=== PATIENT | female | born 1965 | race Caucasian/White ===

== ENCOUNTER 2017-06-17 12:55 | Emergency (ER) | payer BC ==
[~2017-06-17] VITALS: Ht 170.2 cm; Wt 83.0 kg
[~2017-06-17 12:55] MED LIST: ASPIR 8181 MG PO; CLONAZEPAM 0.50.5 M1 PO; FISH OIL 1,001000 M2 PO; HYDROCODON-ACE1 EAC7 PO; LEVOTHYROXIN0.112 M1 PO; LOVASTATIN 20 M20 MG PO; MULTIVITAMINS1 EAC7 PO; NEURONTIN 300300 M1 PO; TOPAMAX50 MG PO; TRINTELLIX PO; VISTARIL 25 MG25 M1 PO; VITAMIN D1000 UNI1 PO
[2017-06-17] MEDS ORDERED: ENDOCET 5-3251 EACH PO (14:47)
[2017-06-17 14:48] VITALS: BP 119/91
[2017-08-24] MEDS ORDERED: HYDROCODONE-AP1 EAC6 PO (08:50)
[2017-08-24] MEDS ORDERED: OXYCODONE HCL 55 MG PO (08:51)
[2018-03-12] MEDS ORDERED: NEURONTIN 300300 M1 PO (09:12)
[2018-03-12] MEDS ORDERED: MOBIC15 MG PO (09:12)
[2018-04-09] MEDS ORDERED: NEURONTIN 300300 M1 PO (08:19)
[2018-04-09] MEDS ORDERED: MOBIC15 MG PO (08:19)
== END 2017-06-17 14:53 | disposition home or self-care (01) ==
LOC: M.ERS 12:55
DX: S52.571A Other intraarticular fracture of lower end of right radius, initial encounter for closed fracture (principal); S46.911A Strain of unspecified muscle, fascia and tendon at shoulder and upper arm level, right arm, initial encounter; M25.331 Other instability, right wrist; F41.9 Anxiety disorder, unspecified; E78.00 Pure hypercholesterolemia, unspecified; F32.9 Major depressive disorder, single episode, unspecified; E03.9 Hypothyroidism, unspecified; Z88.8 Allergy status to other drugs, medicaments and biological substances; Z90.710 Acquired absence of both cervix and uterus; Z90.49 Acquired absence of other specified parts of digestive tract; W01.0XXA Fall on same level from slipping, tripping and stumbling without subsequent striking against object, initial encounter; Y93.89 Activity, other specified; Y92.59 Other trade areas as the place of occurrence of the external cause; Y99.8 Other external cause status

== ENCOUNTER → 2017-11-28 | Outpatient (CLI) | payer BC ==
[~2017-11-28] MED LIST changes: +ENDOCET 5-3251 EACH PO; +HYDROCODONE-AP1 EAC6 PO; +MOBIC15 MG PO; +OXYCODONE HCL 55 MG PO
== END ==
LOC: M.MRI 11-22 15:12
DX: I70.8 Atherosclerosis of other arteries (principal); G45.3 Amaurosis fugax; G43.909 Migraine, unspecified, not intractable, without status migrainosus

== ENCOUNTER → 2018-01-04 | Outpatient (CLI) | payer BC | LOC: M.RAD 13:30 | DX: M51.37 Other intervertebral disc degeneration, lumbosacral region (principal); Z95.828 Presence of other vascular implants and grafts ==

== ENCOUNTER → 2018-03-12 | Outpatient (CLI) | payer BC ==
--- NOTE | 2018-04-01 10:00 | PAINCON ---
[address] [address] PAIN MANAGEMENT CONSULTATION Name: WEIKEAGANBERTRANDNINFA [facility]#: [id number] Admission: 03/12/18 Attend Phys: Guillermo Marcum MD Discharge: Date of : 61 Report #: [id number] THIS REPORT FOR: //name// CC: Guillermo Chinchilla DO DATE OF SERVICE: 03/12/2018 PRIMARY CARE PHYSICIAN: Italo Chinchilla DO CHIEF COMPLAINT: Low back and hip pain. HISTORY OF PRESENT ILLNESS: The patient is a 52-year-old female who has been referred to the Pain Clinic for evaluation of back and hip pain. She has been experiencing pain in the low back area. She is not taking any medications at this juncture. Has taken nonsteroidal anti-inflammatory medications. Feels that the pain is exacerbated by standing as well as sitting for a prolonged periods of time. Describes as continuous, steady and rates it as a 4/10 at this juncture. Denies back surgery. The patient states that she was given a Medrol Dosepak about 5 years ago. She had some problems with that medication at that time. States that she had some tightening around her throat as well as some heart palpitations. She has noted some pain in the posterior portion of her upper thighs in the L5-S1 distribution. Overall, she feels that she has had back pain issues over the last 10 years. Pain has been so problematic that she has had a number of family medical leaves in the past. ALLERGIES: PREDNISONE - sounds like PREDNISONE and MEDROL DOSEPAK caused some palpitations in the chest as well as some tightening in the neck area; this was about 5 years ago. WELLBUTRIN. MEDICATIONS: Mevacor 20 mg total of 80 mg at bedtime, levothyroxine 0.112 mg, aspirin 81 mg chewable. DISCONTINUED MEDICATIONS: Topamax 50 mg b.i.d., gabapentin 300 mg t.i.d., Trintellix 20 mg, clonazepam 0.5 mg b.i.d., Vistaril 25 mg p.r.n. anxiety, vitamin D 1000 units, fish oil 1000 mg, multivitamins. PAST MEDICAL HISTORY: Low back pain, left hip pain, obesity, abdominal aortic aneurysm, generalized anxiety disorder, gastroesophageal reflux disease, heart disease, hypothyroidism, major depressive disorder, obstructive sleep apnea, polyosteoarthritis. PAST SURGICAL HISTORY: Hysterectomy, bilateral partial rotator cuff repairs, right carpal tunnel release, D and C miscarriage, laparoscopic cholecystectomy, [place] [address] PAIN MANAGEMENT CONSULTATION Name: NINFA LUNA Room: [facility] JONATHAN Dunn#: [id number] Admission: 03/12/18 Attend Phys: Guillermo Marcum MD Discharge: Date of : 61 Report #: [id number] history of kidney stones, abdominal aortic aneurysm, stent placement in 2017, oral surgery maxillary extractions with upper denture. SOCIAL HISTORY: The patient is not working, has not worked for the last 2 years. REVIEW OF SYSTEMS: Generally good health, fatigue, weakness, headaches, wears glasses, blurred vision, hearing loss, thyroid disease, back pain, frequent recurring headaches, lightheadedness, dizziness, depression. LABORATORY DATA: Again, no new laboratory values are available. MRI dated 09/22/2004 reveals degenerative disk changes at L5-S1. Mild central disk bulge causing no lateralization or spinal stenosis. PAIN CLINIC ASSESSMENT/PQRS 1. Osteoarthritis/rheumatoid arthritis. The patient states she has not been treated for rheumatoid arthritis, does have some arthritic changes in her shoulders bilaterally. Does have pain in her right wrist after a fall. 2. Height 5 feet 7 inches, weight 187 pounds, BMI is 29.3. 3. Vital signs: Blood pressure 145/78, heart 86, respiratory rate 16, room air saturation 94%, temperature 98.7. 4. Pain score 4/10. 5. Fall risk. The patient has not fallen in the last 3 months. 6. Blood thinner. The patient is not on blood thinning medication. 7. Hypertension. The patient is not being treated for hypertension. 8. Opioid therapy. The patient is not receiving opioid medication on a regular basis. 9. Risk assessment low for opioid use. 10. Functional assessment tool 20/70. 11. Recreational drug use. The patient denies use of recreational drugs. 12. Tobacco: The patient does smoke cigarettes. She has a 43-mahi-mkgw history. 13. Alcohol: The patient denies frequent alcohol use. PHYSICAL EXAMINATION: GENERAL: The patient is a well-developed, well-nourished white female. Appears her stated age. She is alert and oriented x 3. Slightly obese. HEENT: Normocephalic, atraumatic. Extraocular eye muscles intact. Sclerae nonicteric. Mucous membranes are moist. The patient has a significant number of lower teeth which have been extracted. NECK: Without JVD or adenopathy, no bruit is heard. HEART: Regular rate. LUNGS: Clear to auscultation. ABDOMEN: Nontender with bowel sounds present. MUSCULOSKELETAL: Without significant scoliosis, kyphosis or lordosis. The patient has pain and discomfort in the low back area with pain radiating down [facility] [address] [place] [address] PAIN MANAGEMENT CONSULTATION Name: NINFA LUNA Room: [facility]#: [id number] Admission: 03/12/18 Attend Phys: Guillermo Marcum MD Discharge: Date of : 61 Report #: [id number] into the low back area and posterior portion of her right thigh. Forward bending is limited to about 45 degrees with note of pain and discomfort in the low back area, left and right lateral rotation cause some increased discomfort in the low back area, particularly with rotation to the right. Lumbar extension causes pain to experience pain, which radiates down the posterior portion of her back down to the level of her knees. This is in the L5-S1 distribution. The right upper extremity muscle strength is judged to be 4+/5 for the upper extremity on the right, left 5/5 upper extremity. The patient has some pain and discomfort in the right wrist area. States that this is where she had fallen and fractured it. Did not have a cast on for the entirety of the healing process. Muscle strength judged to be 5-/5 for the major muscle groups of the lower extremities. IMPRESSION: 1. Low back pain in the lower lumbar area. The patient with pain in the L5-S1 area in the posterior portion of her right leg. 2. Left hip pain. 3. Obesity. 4. Abdominal aortic aneurysm. 5. Generalized anxiety disorder. 6. Gastroesophageal reflux disease. 7. Heart disease. 8. Hypothyroidism. 9. Major depressive disorder. 10. Obstructive sleep apnea. 11. Polyosteoarthritis. RECOMMENDATIONS: We discussed treatment options with the patient. The patient does have complaint of some pain, which radiates in the L5-S1 distribution on the right. We would consider an epidural steroid injection. The patient states that she was given a Medrol Dosepak some years ago. Did note some problems with palpitations and feeling of swelling in the neck area. We explained to the patient that oftentimes treatment of pain in low back area with irritation of the lumbosacral nerves entail from epidural steroid injection. Medications that we use is triamcinolone. Oftentimes, the patients can experience some problems with medications. It can be as a result of the formulation within the pills and variable from one brand to the next. The patient have experienced some problems with palpitations with steroids in the past. I would recommend the patient be evaluated/worked up to see whether or not she would have an allergy to use of dexamethasone or triamcinolone. These were the agents that we often use in the Pain Clinic. If the patient was found to be able to tolerate their use, she could return to the Pain Clinic at which time she can undergo an epidural steroid injection. We discussed use of Neurontin. The patient states that she had used it in the past. She has not used that at this juncture. Also, would recommend that the patient consider physical therapy. The patient may finds use of tramadol some benefit. Discussed with the patient the [place] [address] PAIN MANAGEMENT CONSULTATION Name: NINFA LUNA Room: [facility]#: [id number] Admission: 03/12/18 Attend Phys: Guillermo Marcum MD Discharge: Date of : 61 Report #: [id number] medications. We have explained that opioid medications can be helpful, but can be problematic and cause some dependency. Oftentimes chronic use of these medications can become less effective secondary to tolerance. The patient can return to the Pain Clinic after she has been tested for the use of triamcinolone and dexamethasone. We would like to thank you for letting us participate in her care. We hope she continues to improve. <ELECTRONICALLY SIGNED> By: Guillermo Marcum MD 04/01/18 [id number]. Alejandro Marcum MD /PMT
== END ==
LOC: M.PC 01-29 04:51
DX: M54.5 Low back pain (principal); M25.552 Pain in left hip; E66.9 Obesity, unspecified; I71.4 Abdominal aortic aneurysm, without rupture; F41.9 Anxiety disorder, unspecified; K21.9 Gastro-esophageal reflux disease without esophagitis; E03.9 Hypothyroidism, unspecified; I51.9 Heart disease, unspecified; F32.9 Major depressive disorder, single episode, unspecified; G47.33 Obstructive sleep apnea (adult) (pediatric); M15.9 Polyosteoarthritis, unspecified

== ENCOUNTER → 2018-11-06 | Outpatient (CLI) | payer BC ==
--- NOTE | 2018-11-08 17:08 | CARDNUC ---
[place] [address] CARDIAC NUCLEAR IMAGING REPORT Name: WEININFA HOANG Room: [facility]#: [id number] Admission: 11/06/18 Attend Phys: Vin Toledo, Discharge: Date of : 61 Date of Service: 11/08/18 1708 Report #: [id number] THIS REPORT FOR: //name// APPROVED REPORT Study performed: 11/06/2018 14:55:27 Exam: Nuclear Stress Test Indication: Chest pain Patient Location: Out-Patient Stress Tech: Estefany Botello Stress Nurse: Tatianna Husain RN NM Tech:BRAYAN Cotter Ht: 5 ft 7 in Wt: 183 lbs BSA: 1.95 m2 BMI: 28.65 Medical History Medical History: hyperlipidemia, hypertension, pvd Medications: lovastatin, lisnopril, asa-81 Allergies: bupropion, prednisone Cardiac Risk Factors: hyperlipidemia, hypertension, pvd, tobacco Previous Cardiac Procedures: none Exercise History: Physically active Stress Test Details Stress Test: Exercise stress converted to pharmacologic stress due to failure to obtain a diagnostic stress test. Reason for pharmacologic stress test: changed from exercise stress test due to inability to reach target heart rate. Reversal agent Aminophyline mg, given intravenously for . HR Resting HR: 81 bpm Max Heart Rate (APMHR): 166 bpm Max HR Achieved: 128 bpm Target HR (85% APMHR): 141 bpm % of APMHR: 77 Recovery HR: 103 bpm BP Resting BP: 147/84 mmHg Max BP: 146/80 mmHg ECG Resting ECG: [place] [address] CARDIAC NUCLEAR IMAGING REPORT Name: NINFA LUNA Room: [facility]#: [id number] Admission: 11/06/18 Attend Phys: Vin Toledo, Discharge: Date of : 61 Date of Service: 11/08/18 1708 Report #: [id number] Stress ECG: Sinus Tachycardia ST Change: None Arrhythmia: None Recovery ECG: Sinus Rhythm Recovery ST Change: None Recovery Arrhythmia: None Clinical Reason for Termination: Completed protocol The patient tolerated Lexiscan infusion without significant cardiac symptoms. Nurse Comments pt unable to complete test on treadmill. switched to ho. pt nauseated. compazine 5mg ivp given. caffeine 60mg ivp given for headache and nausea Stress ECG Conclusion The baseline 12-lead EKG show sinus rhythm without significant ST or T wave abnormality. EKGs obtained during and post walking Lexiscan protocol show sinus rhythm and sinus tachycardia with no significant ST or T wave changes when compared to baseline. There were no stress-induced arrhythmias. NM EXAM: Myocardial Perfusion REST/STRESS Imaging Protocol: Rest Tc-99m/Stress Tc-99m 1 day Resting Data Rest SPECT myocardial perfusion imaging was performed in supine position 30 minutes following the intravenous injection of 10.6 mCi of Tc-99m Sestamibi. Time of rest injection: 1310 Date: 11/06/2018 The images were gated to evaluate regional wall motion and calculate left ventricular ejection fraction. Administration Route: IV Administration Site: Left Hand Pharmacologic Stress Pharmacologic stress test was performed by injecting Regadenoson 0.4 mg IV push followed by the intravenous injection of 33.0 mCi of Tc-99m Sestamibi. Time of stress injection: 1445 Date: 11/06/2018 Administration Route: IV Administration Site: Left Hand Gated Stress SPECT was performed 40 [place] [address] CARDIAC NUCLEAR IMAGING REPORT Name: NINFA LNUA Room: [facility]#: [id number] Admission: 11/06/18 Attend Phys: Vin Toledo, Discharge: Date of : 61 Date of Service: 11/08/18 1708 Report #: [id number] The images were gated to evaluate regional wall motion and calculate left ventricular ejection fraction. Prone imaging was performed. Study Quality Study: Good Artifact: No artifact Study Data At rest, the left ventricular ejection fraction was 76%.. Post stress, the left ventricular ejection was 81%.. TID = 0.90. Perfusion Normal left ventricular perfusion. Wall Motion Normal left ventricular wall motion. Nuclear Conclusion ECG Findings: negative for ischemia Clinical Findings: negative for ischemia Nuclear Findings: negative for ischemia Exercise Capacity: not assessed Left Ventricular Function: normal Risk Study: low Myocardial perfusion images show no defect to suggest infarct or ischemia. Left ventricular systolic function appears normal on gated studies. This is a low risk study. <Conclusion> The baseline 12-lead EKG show sinus rhythm without significant ST or T wave abnormality. EKGs obtained during and post walking Lexiscan protocol show sinus rhythm and sinus tachycardia with no significant ST or T wave changes when compared to baseline. There were no stress-induced arrhythmias. <ELECTRONICALLY SIGNED> By: Vin Toledo MD, FACC 11/08/18 1708 07 07 Vin Toledo MD, FACC /INF
== END ==
LOC: M.NUC 11-01 10:37
DX: R07.9 Chest pain, unspecified (principal); I71.4 Abdominal aortic aneurysm, without rupture; I10 Essential (primary) hypertension; K21.9 Gastro-esophageal reflux disease without esophagitis; E03.9 Hypothyroidism, unspecified; G47.33 Obstructive sleep apnea (adult) (pediatric); E78.5 Hyperlipidemia, unspecified; F17.210 Nicotine dependence, cigarettes, uncomplicated; Z88.8 Allergy status to other drugs, medicaments and biological substances; Z79.899 Other long term (current) drug therapy